=== PATIENT | female | born 1985 | race Caucasian/White ===

== ENCOUNTER 2023-12-19 05:51 | Outpatient (CLI) | payer BC, SELFPAY ==
[2023-12-19] MEDS: Levalbuterol HFA 15 GM INH 4 PUFF IH (09:09)
[2023-12-19] MEDS: Inhaler, Assist Device 1 EACH MC (09:10)
--- NOTE | 2023-12-19 10:40 | W.PFT ---
Date of service: 12/19/23 Time of Service: 07:59 Pulmonary Function Test Result Indications: Cough Interpretation Spirometry: There is mild airflow limitation with a significant bronchodilator response. Lung Volumes: Normal lung volumes Diffusion Capacity: Normal diffusion Airway Pressure: Normal airways resistance Impression Mild airflow obstruction with a significant bronchodilator response consistent with asthma with chronic airways remodelling or asthma-COPD overlap syndrome. Clinical Correlation therefore is recommended.
== END 2023-12-19 05:52 | disposition home or self-care (01) ==
LOC: RT 05:51
PROVIDERS: Visit Provider Family Medicine
DX: J44.89 Other specified chronic obstructive pulmonary disease (principal)
CPT/HCPCS: 94060; 94726; 94729